=== PATIENT | male | born 1995 | race Hispanic/Latino ===

== ENCOUNTER 2024-04-17 12:46 | Emergency (ER) | payer BC ==
[2024-04-17] MEDS ORDERED: Ibuprofen 800 MG TAB ONE (13:20)
== END 2024-04-17 14:28 | disposition home or self-care (01) ==
LOC: NAV ERS 12:46
DX: J06.9 Acute upper respiratory infection, unspecified (principal); B34.9 Viral infection, unspecified; F17.220 Nicotine dependence, chewing tobacco, uncomplicated
CPT/HCPCS: 71046; 87081; 87430